=== PATIENT | male | born 1950 | race African-American/Black ===

== ENCOUNTER 2017-05-06 00:59 | Emergency (ER) | payer OTHER, MEDICARE ==
[2017-05-06] MEDS ORDERED: ACETAMINOPHEN 325 MG TABLET PO ONE (01:34)
[2017-05-06] MEDS ORDERED: LIDOCAINE 5% (700 MG) TRANSDERMAL ADH..PATCH TP ONE (01:34)
--- NOTE | 2017-05-06 02:33 | RADIOLOGY REPORT (SQ) ---
EXAM DESCRIPTION: HIP RIGHT AP/LATERAL COMPLETED DATE/TIME: 05/06/2017 2:22 am REASON FOR STUDY: pain COMPARISON: None. NUMBER OF VIEWS: Two views. TECHNIQUE: AP pelvis and additional frog-leg view of the right hip. LIMITATIONS: None. FINDINGS: MINERALIZATION: Osteopenia. RIGHT HIP: No fracture or dislocation. No worrisome bone lesions. Mild osteoarthritis. LEFT HIP: No fracture or dislocation. No worrisome bone lesions. PUBIS AND ISCHIUM: No fracture. PELVIS: No fracture. SACRUM: No fracture or dislocation. No worrisome bone lesions. LOWER LUMBAR SPINE: No fracture or dislocation. No worrisome bone lesions. No significant disc disea se. SOFT TISSUES: No findings. OTHER: No other significant finding. IMPRESSION: NO RADIOGRAPHIC EVIDENCE OF ACUTE INJURY. TECHNICAL DOCUMENTATION: JOB ID: [id number] [employer]- All Rights Reserved
--- NOTE | 2017-05-06 03:10 | ER Document Report ---
ED General - General Chief Complaint: Hip Pain Stated Complaint: HIP PAIN Time Seen by Provider: 05/06/17 01:34 Notes: Patient is a 67-year-old male who presents with right hip pain that is been present for the past 1 week. He describes it as a dull, aching pain that is present only when he walks. States he has not tried anything to improve the pain. He has not seen his primary doctor regarding today's concerns. Denies any acute fall or injury although states it started shortly after he was lifting a lot of water coolers for a family reunion. He denies any additional injuries or concerns. TRAVEL OUTSIDE OF THE [place] IN LAST 30 DAYS: No - Related Data Allergies/Adverse Reactions: atorvastatin [From Lipitor] Allergy (Verified 07/24/16 17:24) lisinopril Allergy (Verified 07/24/16 17:24) Penicillins Allergy (Verified 07/24/16 17:24) Past Medical History - General Information source: Patient - Social History Smoking Status: Never Smoker Chew tobacco use (# tins/day): No Frequency of alcohol use: None Drug Abuse: None Lives with: Family Family History: Reviewed & Not Pertinent Patient has suicidal ideation: No Patient has homicidal ideation: No - Past Medical History Cardiac Medical History: Reports: Hx Hypercholesterolemia, Hx Hypertension Pulmonary Medical History: Denies: Hx COPD Endocrine Medical History: Reports: Hx Diabetes Mellitus Type 1 Renal/ Medical History: Denies: Hx Peritoneal Dialysis Psychiatric Medical History: Reports: Hx Post Traumatic Stress Disorder - Immunizations Hx Diphtheria, Pertussis, Tetanus Vaccination: Yes Review of Systems - Review of Systems Notes: Constitutional: Negative for fever. HENT: Negative for sore throat. Eyes: Negative for visual changes. Cardiovascular: Negative for chest pain. Respiratory: Negative for shortness of breath. Gastrointestinal: Negative for abdominal pain, vomiting or diarrhea. Genitourinary: Negative for dysuria. Musculoskeletal: Positive for right hip pain Skin: Negative for rash. Neurological: Negative for headaches, weakness or numbness. 10 point ROS negative except as marked above and in HPI. Physical Exam - Vital signs Vitals: Temp Pulse Resp BP Pulse Ox 98.7 F 78 18 162/87 H 99 05/06/17 01:06 05/06/17 01:06 05/06/17 01:06 05/06/17 01:06 05/06/17 01:06 Interpretation: Hypertensive Notes: PHYSICAL EXAMINATION: GENERAL: Well-appearing, well-nourished and in no acute distress. HEAD: Atraumatic, normocephalic. EYES: sclera anicteric, conjunctiva are normal. ENT: Moist mucous membranes. NECK: Normal range of motion LUNGS: Normal work of breathing HEART: 2+ DP pulses bilaterally EXTREMITIES: No pain with axial loading on the right or with internal or external rotation of the hip. Pain on palpation of the lateral thigh. NEUROLOGICAL: No focal neurological deficits. Moves all extremities spontaneously and on command. PSYCH: Normal mood, normal affect. SKIN: Warm, Dry, normal turgor, no rashes or lesions noted. Course - Re-evaluation Re-evalutation: 05/06/17 03:09 No evidence of a septic joint, gout flare, dislocation, or fracture on exam and imaging. History is most consistent with likely musculoskeletal strain. Vitals wnl. At this time, I do not see an indication for labs or further imaging. At this time will discharge with return precautions and follow-up recommendations. Verbal discharge instructions given a the bedside and opportunity for questions given. Medication warnings reviewed. Patient is in agreement with this plan and has verbalized understanding of return precautions and the need for primary care follow-up in the next 24-72 hours. - Vital Signs Vital signs: Temp Pulse Resp BP Pulse Ox 98.7 F 78 18 162/87 H 99 05/06/17 01:06 05/06/17 01:06 05/06/17 01:06 05/06/17 01:06 05/06/17 01:06 - Diagnostic Test Radiology reviewed: Image reviewed, Reports reviewed Radiology results interpreted by me: 05/06/17 03:10 Right hip x-ray: No acute fracture or dislocation Discharge - Discharge Clinical Impression: Right hip pain Condition: Good Disposition: HOME, SELF-CARE Additional Instructions: Your x-ray does not show any acute fracture today. You likely have a ligamentous strain. You should continue to take anti-inflammatories such as ibuprofen 600 mg every 6 hours. Continue to apply heat to the area is much your able. Apply topical lidocaine to the area. Please follow-up with your primary care physician if you do not have improving your symptoms in the next 1- 2 weeks. Please return immediately if you develop weakness, numbness, spreading redness from the area, or any other symptoms that are concerning to you.
[2017-05-06 03:59] VITALS: BP 144/94
== END 2017-05-06 03:27 | disposition home or self-care (01) ==
LOC: ER 00:59
DX: M25.551 Pain in right hip (principal); I10 Essential (primary) hypertension; E10.9 Type 1 diabetes mellitus without complications; Z88.8 Allergy status to other drugs, medicaments and biological substances; Z88.0 Allergy status to penicillin
CPT/HCPCS: 99283

== ENCOUNTER 2018-07-03 17:05 | Emergency (ER) | payer OTHER, MEDICARE ==
[2018-07-03 17:17] VITALS: BP 168/88
[2018-07-03] MEDS ORDERED: DIPH/PERTUSS(ACELL)/TETANUS VAC/PF 0.5 ML SYR (>=10YO) IM ONE ×2 (17:21→21:45)
--- NOTE | 2018-07-03 17:26 | ER Document Report ---
ED Medical Screen (RME) - General Chief Complaint: Foot Injury Stated Complaint: FOOT PAIN Time Seen by Provider: 07/03/18 17:20 Mode of Arrival: Wheelchair Information source: Patient, [facility] Records Notes: 68-year-old male with hypertension, hyperlipidemia, type 1 diabetes, PTSD presents with complaint of left foot pain that started just prior to arrival after the patient accidentally stepped on a rate that was in his garage. Patient was wearing slip on rubber shoes. Tetanus is not up-to-date. I have greeted and performed a rapid initial assessment of this patient. A comprehensive ED assessment and evaluation of the patient, analysis of test results and completion of medical decision making process we will be contacted by additional ED providers. General; no acute distress Respiratory; clear to auscultation bilaterally Musculoskeletal; left foot-0.5 cm laceration to the forefoot, 1.5 cm laceration between the fourth and fifth toe TRAVEL OUTSIDE OF THE [place] IN LAST 30 DAYS: No - HPI Onset: Just prior to arrival Onset/Duration: Sudden Quality of pain: Achy, Throbbing Severity: Moderate Associated Symptoms: None Exacerbated by: Movement, Walking Relieved by: Remaining still Similar symptoms previously: No Recently seen / treated by doctor: No - Related Data Smoking: Non-smoker Frequency of alcohol use: None Drug Abuse: None Allergies/Adverse Reactions: atorvastatin [From Lipitor] Allergy (Verified 07/03/18 17:08) lisinopril Allergy (Verified 07/03/18 17:08) Penicillins Allergy (Verified 07/03/18 17:08) Past Medical History - Past Medical History Cardiac Medical History: Reports: Hx Hypercholesterolemia, Hx Hypertension Pulmonary Medical History: Denies: Hx COPD Endocrine Medical History: Reports: Hx Diabetes Mellitus Type 1 Renal/ Medical History: Denies: Hx Peritoneal Dialysis Psychiatric Medical History: Reports: Hx Post Traumatic Stress Disorder - Immunizations Hx Diphtheria, Pertussis, Tetanus Vaccination: Yes Physical Exam - Vital signs Vitals: Temp Pulse Resp BP Pulse Ox 98.4 F 67 16 168/88 H 97 07/03/18 17:12 07/03/18 17:12 07/03/18 17:12 07/03/18 17:12 07/03/18 17:12 Course - Vital Signs Vital signs: Temp Pulse Resp BP Pulse Ox 98.4 F 67 16 168/88 H 97 07/03/18 17:12 07/03/18 17:12 07/03/18 17:12 07/03/18 17:12 07/03/18 17:12
--- NOTE | 2018-07-03 17:42 | RADIOLOGY REPORT (SQ) ---
EXAM DESCRIPTION: FOOT LEFT COMPLETE COMPLETED DATE/TIME: 07/03/2018 5:34 pm REASON FOR STUDY: puncture wound COMPARISON: None. NUMBER OF VIEWS: Three views. TECHNIQUE: AP, lateral and oblique radiographic images acquired of the left foot. LIMITATIONS: None. FINDINGS: MINERALIZATION: Normal. BONES: No acute fracture or dislocation. No worrisome bone lesions. JOINTS: No effusions. SOFT TISSUES: No soft tissue swelling. No foreign body. OTHER: No other significant finding. IMPRESSION: NEGATIVE STUDY OF THE LEFT FOOT. NO RADIOGRAPHIC EVIDENCE OF ACUTE INJURY. TECHNICAL DOCUMENTATION: JOB ID: [id number] [employer]- All Rights Reserved Reading location - IP/workstation name: [email or web address]
--- NOTE | 2018-07-03 19:57 | ER Document Report ---
HPI - HPI Pain Level: 5 Notes: Patient is a 68-year-old male with a history of diabetes who presents to the ED complaining of a puncture laceration wound to his left foot x2. Patient states that he is wearing his crocs when he stepped on a metal rake which punctured his foot. Patient states that he is still able to ambulate, but does have soreness associated. He has not noticed any purulent discharge or red streaks. The incident occurred prior to arrival. He is unsure of his last tetanus. Denies any headache, fever, URI, sore throat, chest pain, palpitations, syncope , cough, shortness of breath, wheeze, dyspnea, abdominal pain, nausea/vomiting/ diarrhea, urinary retention, dysuria, hematuria, loss of control of bowel or bladder, numbness/tingling, saddle anesthesia, muscle paralysis/weakness, or rash. - ROS Systems Reviewed and Negative: Yes All other systems reviewed and negative - REPRODUCTIVE Reproductive: DENIES: : - DERM Skin Color: Normal Past Medical History - General Information source: Patient, [facility] Records - Social History Smoking Status: Never Smoker Frequency of alcohol use: None Drug Abuse: None Family History: Reviewed & Not Pertinent Patient has suicidal ideation: No Patient has homicidal ideation: No - Past Medical History Cardiac Medical History: Reports: Hx Hypercholesterolemia, Hx Hypertension Pulmonary Medical History: Denies: Hx COPD Endocrine Medical History: Reports: Hx Diabetes Mellitus Type 1 Renal/ Medical History: Denies: Hx Peritoneal Dialysis Psychiatric Medical History: Reports: Hx Post Traumatic Stress Disorder - Immunizations Hx Diphtheria, Pertussis, Tetanus Vaccination: Yes Vertical Provider Document - CONSTITUTIONAL Agree With Documented VS: Yes Notes: PHYSICAL EXAMINATION: GENERAL: Well-appearing, well-nourished and in no acute distress. LUNGS: Breath sounds clear to auscultation bilaterally and equal. No wheezes rales or rhonchi. HEART: Regular rate and rhythm without murmurs, rubs, gallops. Musculoskeletal: Lt foot: FROM to passive/active. Strength 5+/5. N/V intact distal. No bony tenderness. Extremities: No cyanosis, clubbing, or edema b/l. Peripheral pulses 2+. Capillary refill less than 3 seconds. NEUROLOGICAL: Normal speech, limping gait. Normal sensory, motor exams PSYCH: Normal mood, normal affect. SKIN: There is a narrow 1cm linear superficial puncture lac to the lateral ball of foot and a 0.5cm laceration to to the lateral 4th phalanx that is also superficial and linear. No streaks, purulence, abscess, or erythema. - INFECTION CONTROL TRAVEL OUTSIDE OF THE [place] IN LAST 30 DAYS: No Course - Re-evaluation Re-evalutation: 07/03/18 21:23 Patient is an afebrile, well-hydrated, 68-year-old male who presents to the ED with a puncture laceration to his left foot/toes. Vitals are acceptable without any significant tachycardia, tachypnea, or hypoxia. PE is otherwise unremarkable for any neurovascular compromise, obvious tendon/ligament rupture, obvious fracture/dislocation, septic joint. Wound was thoroughly irrigated and cleansed. I did review with patient that because this is primarily a puncture wound x2, I will not be performing a full closure of the wound. Wound edges were approximated appropriately utilizing one simple interrupted suture each allowing for drainage if needed. Wound dressing was placed and wound instructions reviewed. Patient told procedure well without any complications. To cover for pseudamonas, I will place him on cipro. No other evidence for skin infection. Risk and benefit reviewed of use of ciprofloxacin. Patient is in agreement with its use at this time. Recheck with your PCM in 2-3 days. Sutures will need removed in 10 days. Return to the ED with any worsening/ concerning symptoms otherwise as reviewed in discharge. Patient is in agreement. - Vital Signs Vital signs: Temp Pulse Resp BP Pulse Ox 98.4 F 67 16 168/88 H 97 07/03/18 17:12 07/03/18 17:12 07/03/18 17:12 07/03/18 17:12 07/03/18 17:12 Procedures - Laceration/Wound Repair Left Foot Time completed: 21:20 Wound length (cm): 1 Wound's Depth, Shape: Superficial, Linear Laceration pre-procedure: Sterile PPE donned, Chloraprep applied, Sterile drapes applied Wound explored: Clean, No foreign body removed Irrigated w/ Saline (mLs): 60 Wound Debrided: none Wound Repaired With: Sutures Suture Size/Type: 4:0, Nylon Number of Sutures: 1 Layer Closure?: No Post-procedure wound care: Sterile dressing applied Post-procedure NV exam normal: Yes Complications: No Left Toe 4th digit Time completed: 20:20 Wound length (cm): 0.5 Wound's Depth, Shape: Superficial, Linear Laceration pre-procedure: Sterile PPE donned, Chloraprep applied, Sterile drapes applied Wound explored: Clean, No foreign body removed Irrigated w/ Saline (mLs): 60 Wound Debrided: none Wound Repaired With: Sutures Suture Size/Type: 4:0, Nylon Number of Sutures: 1 Layer Closure?: No Post-procedure wound care: Sterile dressing applied Post-procedure NV exam normal: Yes Complications: No Discharge - Discharge Clinical Impression: Foot laceration Qualifiers: Encounter type: initial encounter Laterality: left Qualified Code(s): S91.312A - Laceration without foreign body, left foot, initial encounter Puncture wound of foot Qualifiers: Encounter type: initial encounter Laterality: left Qualified Code(s): S91.332A - Puncture wound without foreign body, left foot, initial encounter Toe laceration Qualifiers: Encounter type: initial encounter Toe: lesser toe Damage to nail status: without damage Foreign body presence: without foreign body Laterality: left Qualified Code(s): S91.115A - Laceration without foreign body of left lesser toe (s) without damage to nail, initial encounter Condition: Stable Disposition: HOME, SELF-CARE Instructions: Antibiotic Ointment Protection ([facility]), Laceration Care ([facility]), Prophylactic Antibiotic ([facility]), Soap Cleansing ([facility]), Tetanus Immunization Given ([facility]) Additional Instructions: Do not shower or bathe for 24 hours. After 24 hours you may shower but no submersion of the wound under water. Keep the original dressing on the wound for 24 hours unless the drainage soaks through. Change the dressing daily thereafter and keep the knots of the suture material clean from any dried discharge. You may leave the wound open to the air once there is no more discharge. See your PCM in 2-3 days for a recheck. Monitor for any signs of worsening pain or redness, purulent drainage, streaks, and/or fever. Return to the ED if noticing any of the above symptoms or as needed. Take medications as directed. Your sutures will need to be removed in 10 days. Prescriptions: Ciprofloxacin HCl [Cipro 500 mg Tablet] 500 mg PO BID #14 tablet Forms: Elevated Blood Pressure Referrals: [facility]) [Provider Group] - Follow up as needed
== END 2018-07-03 21:50 | disposition home or self-care (01) ==
LOC: ER 17:05
PROC: 0HQNXZZ Repair Left Foot Skin, External Approach (ICD-10-PCS; principal; 2018-07-03)
DX: S91.312A Laceration without foreign body, left foot, initial encounter (principal); S91.332A Puncture wound without foreign body, left foot, initial encounter; S91.115A Laceration without foreign body of left lesser toe(s) without damage to nail, initial encounter; W22.09XA Striking against other stationary object, initial encounter; E78.00 Pure hypercholesterolemia, unspecified; I10 Essential (primary) hypertension; Z23 Encounter for immunization; E10.9 Type 1 diabetes mellitus without complications
CPT/HCPCS: 90471; 99283